=== PATIENT | female | born 1975 | race Caucasian/White ===

== ENCOUNTER 2016-09-30 19:25 | Emergency (ER) | payer BC ==
[2016-09-30] MEDS ORDERED: diphenhydrAMINE HCL 50 MG/ML VIAL IM ONE (20:07)
[2016-09-30] MEDS ORDERED: KETOROLAC TROMETHAMINE 60 MG/2 ML VIAL IM ONE ×2 (20:07→20:16)
[2016-09-30] MEDS ORDERED: METOCLOPRAMIDE HCL 5 MG/ML VIAL IM ONE (20:07)
--- NOTE | 2016-09-30 20:10 | ERNOTE ---
Headache ER HPI - Narrative Date of Service: 09/30/16 - General Presenting Symptoms: "migraine" Time Seen by Provider: 09/30/16 20:01 Source: patient Exam Limitations: no limitations - Immun/Allergies/Home Medications Immunizations: IMMUNIZATION HX Immunizations Up to Date Yes History of Influenza Vaccine No Hx Pneumococcal Vaccination No Allergies/Adverse Reactions: Allergies No Known Allergies Allergy (Verified 09/18/15 09:24) Home Medications: HOME MEDICATIONS Acetaminophen [Tylenol] 500 - 1,000 mg PO Q6H PRN 09/11/15 [Last Taken Unknown] oxyCODONE HCL/ACETAMINOPHEN [Percocet 5-325 mg Tablet] 1 each PO Q4H PRN #20 tablet 09/18/15 [Last Taken Unknown] - History of Present Illness Narrative: Pt. comes in with c/o migraine that started at 0600 this morning at the back of her head and has migrated to the front of her head. Pt. has hx of migraines and states that this one is not different or worse that previous migraines. Pt. states that she took two vicoprofen today without relief. Review of Systems - Review of Systems Constitutional: Present: no symptoms reported. Absent: recent illness, fever, chills, weakness, fatigue, malaise EYE: Present: no symptoms reported ENT: Present: no symptoms reported Respiratory: Present: no symptoms reported. Absent: shortness of breath, cough , wheezing Cardiology: Present: no symptoms reported. Absent: chest pain, palpitations, edema Gastrointestinal/Abdominal: Present: no symptoms reported. Absent: nausea, vomiting, diarrhea Genitourinary: Present: no symptoms reported. Absent: frequency, pain, dysuria Musculoskeletal: Present: no symptoms reported. Absent: back pain, joint pain Skin: Present: no symptoms reported. Absent: rash, change in color Neurological: Present: headache. Absent: dizziness/light-headedness, numbness, tingling All Other Systems: All systems neg except as marked - Patient's Past Medical History Patient History - Medical: Anemia, Anxiety, Depression, Migraines Patient History - Cardiac/Respiratory: No pertinent hx, Other Patient History - Cancer: No Hx of Cancer Patient History - Surgical Procedures: D & C, T & A Patient History - Other: None LMP (females 10-50): now - Family History Father Family History - Medical: No pertinent hx Family History - Cardiac/Respiratory: Hypertension, Other Mother Family History - Medical: Diabetes Type 2 Family History - Cardiac/Respiratory: No pertinent hx Grandfather-Paternal Family History - Medical: , No pertinent hx Family History - Cardiac/Respiratory: Myocardial Infarction Grandmother-Paternal Family History - Medical: No pertinent hx, Osteoarthritis Family History - Cardiac/Respiratory: No pertinent hx paternal uncle Family History - Medical: No pertinent hx Family History - Cardiac/Respiratory: No pertinent hx - Social History Living Situations: home Abuse History: No History of abuse Psych History: Hx of Depression Smoking Status: Current every day smoker Have you smoked in the past 12 months: Yes Do you dip or chew tobacco: No Alcohol Use: occasionally Drug Use: other - Immunizations Immunizations Up to Date: Yes Hx Pneumococcal Vaccination: No History of Influenza Vaccine: No Physical Exam - Physical Exam General Appearance: Present: wd/wn, alert, no apparent distress Eye Exam: Normal inspection: bilateral, PERRL: bilateral, EOMI: bilateral Ears, Nose, Throat: Present: normal ENT inspection, normal pharynx Neck: Present: normal inspection, nontender. 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 Absent: pallor, skin rash ED Progress - Vital Signs Patient's Vital Signs:: I have reviewed the patient's vital signs. Vital Signs: Vital Signs 09/30/16 19:37 Temperature 37.0 C Pulse Rate 78 Respiratory 18 Rate Blood Pressure 177/102 O2 Sat by Pulse 97 Oximetry - Progress/Reassessment Chief Complaint: Headache Departure Clinical Impression: Migraine Qualifiers: Migraine type: without aura Status migrainosus presence: without status migrainosus Intractability: not intractable Qualified Code(s): G43.009 - Migraine without aura, not intractable, without status migrainosus - Departure Disposition: Home self-care Condition: Good Instructions: Recurrent Migraine Headache, [id number] Additional Instructions: Please follow up with primary provider in 2-3 days. Referrals: Allison Neal, MACHINE PACKAGER [Primary Care Provider] -
[2016-09-30] MEDS ORDERED: diphenhydrAMINE HCL 50 MG/ML VIAL ONE (20:16)
[2016-09-30] MEDS ORDERED: METOCLOPRAMIDE HCL 5 MG/ML VIAL ONE (20:16)
--- OUTSIDE RECORDS SUMMARY | 2016-09-30 20:36 | XMS REPORT | Continuity of Care Document ---
:1975 Author Organization [facility] ([facility]) [place] [address] Phone [phone] Care Team Providers Name Role Phone Allison Neal Primary Care Provider [phone] Source Comments This disclosure is being made pursuant to the Care Everywhere program, applicable federal and state laws, and may not contain all informaitonavailable regarding this patient.[facility] ([facility]) Active Allergies and Adverse Reactions No Known Allergies Current Medications Prescription Sig. Disp. Refills Start Date End Date Status acetaminophen 325 mg Take 650 mg by Active tablet mouth every 4 hours as needed. VITS Take by mouth. 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
[2016-09-30 20:57] VITALS: BP 153/85
== END 2016-09-30 20:59 | disposition home or self-care (01) ==
LOC: ER 19:25
DX: G43.009 Migraine without aura, not intractable, without status migrainosus (principal); F17.210 Nicotine dependence, cigarettes, uncomplicated

== ENCOUNTER 2017-03-02 13:38 | Emergency (ER) | payer BC ==
[2017-03-02] MEDS ORDERED: diphenhydrAMINE HCL 50 MG/ML VIAL IV ONE (13:53)
[2017-03-02] MEDS ORDERED: NORMAL SALINE 1,000 ML IV ONE (13:53)
[2017-03-02] MEDS ORDERED: METOCLOPRAMIDE HCL 5 MG/ML VIAL IV ONE (13:53)
[2017-03-02] MEDS ORDERED: diphenhydrAMINE HCL 50 MG/ML VIAL ONE (13:54)
[2017-03-02] MEDS ORDERED: METOCLOPRAMIDE HCL 5 MG/ML VIAL ONE (13:55)
--- NOTE | 2017-03-02 13:58 | ERNOTE ---
Headache ER HPI - General Presenting Symptoms: headache, "migraine" Time Seen by Provider: 03/02/17 13:41 Source: patient Exam Limitations: no limitations - Immun/Allergies/Home Medications Immunizations: IMMUNIZATION HX Immunizations Up to Date Yes History of Influenza Vaccine No Hx Pneumococcal Vaccination No Allergies/Adverse Reactions: Allergies No Known Allergies Allergy (Verified 09/18/15 09:24) Home Medications: HOME MEDICATIONS Acetaminophen [Tylenol] 500 - 1,000 mg PO Q6H PRN 09/11/15 [Last Taken Unknown] oxyCODONE HCL/ACETAMINOPHEN [Percocet 5-325 mg Tablet] 1 each PO Q4H PRN #20 tablet 09/18/15 [Last Taken Unknown] Butalb/Acetaminophen/Caffeine [Fioricet] 1 tab PO TID PRN #20 tablet 03/02/17 [ Last Taken Unknown] Ondansetron [Zofran Odt] 4 mg PO Q6H PRN #14 tab 03/02/17 [Last Taken Unknown] - Pain Pain Score: 9 - History of Present Illness Narrative: Patient presents with one of her migraines, onset was this morning and she has not been able to keep her ibuprofen down which normally works for her migraines. Headache is moderate to severe in intensity and throbbing much like her typical migraines. Timing of Headache: gradual, persistent Quality: Present: throbbing Severity Maximum: Present: moderate, severe Severity-Currently: Present: moderate, severe Headache frequency: Present: frequent headaches, similar to previous headache Modifying Factors - (Worsens): Reports: exposure to light Associated Symptoms: Reports: nausea, vomiting Exacerbated by:: Reports: light, noise Prior Treament: Reports: recently seen, treated by physician Review of Systems - Review of Systems Constitutional: Present: See HPI EYE: Present: no symptoms reported ENT: Present: no symptoms reported Respiratory: Present: no symptoms reported Cardiology: Present: no symptoms reported Gastrointestinal/Abdominal: Present: nausea, vomiting Genitourinary: Present: no symptoms reported Musculoskeletal: Present: no symptoms reported Skin: Present: no symptoms reported Neurological: Present: headache Endocrine: Present: no symptoms reported Hematologic/Lymphatic: Present: no symptoms reported Psych: Present: no symptoms reported - Patient's Past Medical History Patient History - Medical: Anemia, Anxiety, Depression, Migraines Patient History - Cardiac/Respiratory: No pertinent hx, Other Patient History - Cancer: No Hx of Cancer Patient History - Surgical Procedures: D & C, T & A Patient History - Other: None - Family History Father Family History - Medical: No pertinent hx Family History - Cardiac/Respiratory: Hypertension, Other Mother Family History - Medical: Diabetes Type 2 Family History - Cardiac/Respiratory: No pertinent hx Grandfather-Paternal Family History - Medical: , No pertinent hx Family History - Cardiac/Respiratory: Myocardial Infarction Grandmother-Paternal Family History - Medical: No pertinent hx, Osteoarthritis Family History - Cardiac/Respiratory: No pertinent hx paternal uncle Family History - Medical: No pertinent hx Family History - Cardiac/Respiratory: No pertinent hx - Social History Living Situations: home Abuse History: No History of abuse Psych History: Hx of Anxiety, Hx of Depression Smoking Status: Current every day smoker Have you smoked in the past 12 months: Yes Do you dip or chew tobacco: No Alcohol Use: rarely Drug Use: none - Immunizations Immunizations Up to Date: Yes Hx Pneumococcal Vaccination: No History of Influenza Vaccine: No Physical Exam - Physical Exam General Appearance: Present: wd/wn, alert, moderate distress, severe distress Head Exam: Present: normal inspection, no evidence of injury Eye Exam: Normal inspection: bilateral, PERRL: bilateral, Photophobia: bilateral Ears, Nose, Throat: Present: normal ENT inspection, H, normal pharynx Neck: Present: normal inspection, nontender Respiratory: Present: no respiratory distress, normal breath sounds, no accessory muscle use, chest nontender, lungs clear Cardiovascular/Chest: Present: regular rate, rhythm, no murmur, normal peripheral pulses Gastrointestinal/Abdominal: Present: normal bowel sounds, nontender, nondistended, soft, no organomegaly Rectal Exam: Present: deferred Back Exam: Present: normal inspection, normal range of motion Extremity Exam: Present: normal inspection, non-tender, no edema, normal range of motion Neurological Exam: Present: alert, oriented, normal mood/affect Skin Exam: Present: normal color, warm/dry Lymphatic Exam: Present: no adenopathy ED Progress - Vital Signs Patient's Vital Signs:: I have reviewed the patient's vital signs. Vital Signs: Vital Signs 03/02/17 13:42 Temperature 36.4 C L Pulse Rate 99 Respiratory 17 Rate Blood Pressure 154/83 O2 Sat by Pulse 98 Oximetry - Progress/Reassessment Chief Complaint: Headache Progress:: Improved Plan - Plan Plan: Patient states that her headache is down to 4 and manageable at home, that her nausea and vomiting have resolved. Patient will be given a prescription for Zofran ODT and Fioricet and she will follow-up with her family physician as needed. Departure Clinical Impression: Migraine Qualifiers: Migraine type: with aura Status migrainosus presence: without status migrainosus Intractability: not intractable Qualified Code(s): G43.109 - Migraine with aura, not intractable, without status migrainosus - Departure Disposition: Home self-care Condition: Good Instructions: Recurrent Migraine Headache, [id number] Referrals: Allison Neal, PARALEGAL INSTRUCTOR [Primary Care Provider] - Prescriptions: Butalb/Acetaminophen/Caffeine [Fioricet] 1 tab PO TID PRN #20 tablet PRN Reason: Headache Ondansetron [Zofran Odt] 4 mg PO Q6H PRN #14 tab PRN Reason: Nausea And Vomiting
[2017-03-02] MEDS ORDERED: ONDANSETRON HCL/PF 2 MG/ML VIAL IV ONE (14:16)
[2017-03-02] MEDS ORDERED: KETOROLAC TROMETHAMINE 30 MG/ML VIAL IV ONE (14:16)
[2017-03-02] MEDS ORDERED: ONDANSETRON HCL/PF 2 MG/ML VIAL ONE (14:16)
[2017-03-02] MEDS ORDERED: KETOROLAC TROMETHAMINE 30 MG/ML VIAL ONE (14:16)
[2017-03-02 15:11] VITALS: BP 136/78
== END 2017-03-02 15:12 | disposition home or self-care (01) ==
LOC: ER 13:38
DX: G43.109 Migraine with aura, not intractable, without status migrainosus (principal); F17.200 Nicotine dependence, unspecified, uncomplicated
CPT/HCPCS: 96374; 96375; 99284; J2405